=== PATIENT | male | born 1940 | race Caucasian/White ===

== ENCOUNTER → 2017-10-14 13:25 | Outpatient (CLI) | payer MEDICARE, OTHER, SELFPAY ==
[2017-10-16 14:56] LABS: PSA Free % 19 % (calc) (> 25); PSA, Total 7.9 ng/mL (< 4.1)
== END ==
PROVIDERS: PCP Internal Medicine; Visit Provider Internal Medicine
DX: R97.20 Elevated prostate specific antigen [PSA] (principal)
CPT/HCPCS: 36415; 84153; 84154

== ENCOUNTER 2017-10-20 10:03 | Day surgery (SDC) | payer MEDICARE, OTHER, SELFPAY ==
--- NOTE | 2017-10-20 | PATH_ITS ---
[facility] Accession Number: [id number] . 01 Material submitted: . ASCENDING COLON POLYP . 02 Diagnosis: Ascending Colon Polyp: Sessile serrated adenoma. MRV/10/22/2017 . 02 Electronically signed: . Klaus Varghese MD, PhD, Pathologist NPI- [id number] . 01 Gross description: . ASCENDING COLON POLYP: Received in formalin are multiple fragment(s) of [place], soft tissue measuring 1.3 x 0.3 x 0.2 cm in aggregate submitted entirely in 1 cassette(s) /TRC /TRC . 02 Pathologist provided ICD-10: D12.2 . 02 CPT . 129392 Performed at: 01 [facility] [address] [id number] MD Bartolo Boyer MD Phone: [phone] Performed at: 02 [facility] [address] [place], [place] [id number] MD Isaac Shaw MD Phone: [phone]
[2017-10-20 10:30] VITALS: BP 132/83; PULSE 67; RESP 16; TEMP 36.4; O2SAT 100; BMI 26.2
[2017-10-20] MEDS: SODIUM CHLORIDE 0.9% 1,000 ML 200 ML IV (10:37)
--- NOTE | 2017-10-20 10:50 | PM.HP.1 ---
History of Present Illness Date Patient Seen: 10/20/17 Time Patient Seen: 10:50 Chief complaint: COLONSCOPY [id number] Narrative: The patient is a gentleman here for screening colonoscopy. His last exam was 10 years ago. He has seen no blood in has no family history of colon cancer. Patient History Surgical History History of hemorrhoidectomy (Inactive) Family & Social History Social History: household members spouse Non smoker Meds Home Medications Medication Instructions Recorded Confirmed Type No Known Home Medications 10/20/17 10/20/17 History Allergies Allergy/AdvReac Type Severity Reaction Status Date / Time From CLINDAMYCIN HCL Allergy Mild SEVERE Uncoded 10/20/17 10:38 REDNESS ON SKIN Review of Systems Review of Systems All systems reviewed & are unremarkable except as noted in HPI and below Exam Vital Signs (past 8 hours): Vital Signs - 8 hr 10/20/17 10:30 Temperature 97.5 F L Pulse Rate 67 Respiratory Rate 16 Blood Pressure 132/83 H Pulse Oximetry 100 Pulse Oximetry 100 Oxygen Delivery Method Room Air Narrative Exam Narrative: Operative no apparent distress. Lungs are clear no rales or rhonchi heart regular rate and rhythm no murmur gallop or heave lift or thrill abdomen is protuberant soft nontender without mass or obvious hernia. Patient is alert and oriented x3. Assessment & Plan Plan: Assessment/Plan Narrative: I have discussed the procedure and the rationale with the patient including risks of bleeding, perforation which would necessitate a major operation, failure to find remove all lesions and the potential to tattoo. They appeared to understand and wished to proceed.
--- NOTE | 2017-10-20 10:53 | P.HP_ITS ---
History of Present Illness Date Patient Seen: 10/20/17 Time Patient Seen: 10:50 Chief complaint: COLONSCOPY [id number] Narrative: The patient is a gentleman here for screening colonoscopy. His last exam was 10 years ago. He has seen no blood in has no family history of colon cancer. Patient History Surgical History History of hemorrhoidectomy (Inactive) Family & Social History Social History: household members spouse Non smoker Meds Home Medications Medication Instructions Recorded Confirmed Type No Known Home Medications 10/20/17 10/20/17 History Allergies Allergy/AdvReac Type Severity Reaction Status Date / Time From CLINDAMYCIN HCL Allergy Mild SEVERE Uncoded 10/20/17 10:38 REDNESS ON SKIN Review of Systems Review of Systems All systems reviewed & are unremarkable except as noted in HPI and below Exam Vital Signs (past 8 hours): Vital Signs - 8 hr 3 10/20/17 10:30 Temperature 97.5 F L Pulse Rate 67 Respiratory Rate 16 Blood Pressure 132/83 H Pulse Oximetry 100 Pulse Oximetry 100 Oxygen Delivery Method Room Air Narrative Exam Narrative: Operative no apparent distress. Lungs are clear no rales or rhonchi heart regular rate and rhythm no murmur gallop or heave lift or thrill abdomen is protuberant soft nontender without mass or obvious hernia. Patient is alert and oriented x3. Assessment & Plan Plan: Assessment/Plan Narrative: I have discussed the procedure and the rationale with the patient including risks of bleeding, perforation which would necessitate a major operation, failure to find remove all lesions and the potential to tattoo. They appeared to understand and wished to proceed.
--- NOTE | 2017-10-20 10:53 | PM.PREOP ---
Pre-operative Note Interval Note Pre-op Check: History & Physical exam performed today ASA Class (for procedural sedation): I
--- NOTE | 2017-10-20 11:01 | SUR.OPER ---
to endo from opd via cart respirations unlabored iv patent positioned per self for procedure
--- NOTE | 2017-10-20 11:32 | SUR.OPER ---
tolerated procedure well
[2017-10-20 11:34] VITALS: BP 99/66; PULSE 56; RESP 10; TEMP 36.1; O2SAT 95
[2017-10-20] MEDS: fentaNYL 250 MCG/5 ML INJ 100 MCG IV (11:36)
[2017-10-20] MEDS: MIDAZOLAM 5 MG/5 ML VIAL IV (11:36)
[2017-10-20 11:39] VITALS: BP 116/60; PULSE 66; RESP 14; O2SAT 96
--- NOTE | 2017-10-20 11:41 | PM.OP.ENDO ---
Operative Date/Time/Diagnoses - Date of procedure: 10/20/17 Time of procedure: 11:36 Pre-op diagnosis: Screening examination. Last exam 10 years ago. Post-op diagnosis: same (Ascending colon polyp. Sigmoid diverticulosis. Internal hemorrhoids.) Procedure & Clinicians Study performed: Colonoscopy with cold biopsy. Same procedure as scheduled: Yes Indications: Screening Surgeon: Royer Fabian Procedure Notes SCOAP/Timeout: Performed Procedure in detail: The patient was placed in the left lateral decubitus position and underwent IV sedation directed by the surgeon consisting of fentanyl and Versed. Digital exam was normal. His prostate is firm but small. The scope was inserted and advanced through the rectum into the sigmoid, descending, transverse, and ascending colon. I noted sigmoid diverticulosis. No other lesion was seen.. The cecum was reached identified by the ileocecal valve and the appendiceal opening. Retroflexed view in the cecum revealed a small polyp on the backside of a fold in the ascending colon. This was biopsied and removed. The ileocecal valve was[not] cannulated. The scope was gradually brought out. No other Polyps were found. The scope ultimately was retroflexed in the rectum. The appearance was significant for internal hemorrhoids without ulceration. There were moderate in size.. The scope was removed and the patient tolerated the procedure well Scope withdrawal time: 7.5 min excluding biopsy time Sedation minutes: 31 Findings: diverticulosis (Sigmoid), internal hemorrhoids and polyp (Ascending colon near cecum) Recommendations: Colonscopy in 5 years (If in good health) Plan for aftercare: Follow-up is needed Follow up: as needed Disposition: PACU
[2017-10-20 11:43] VITALS: BP 125/76; PULSE 62; RESP 11; TEMP 36.1; O2SAT 95
[2017-10-20 12:05] VITALS: BP 113/72; PULSE 56; RESP 16; TEMP 36.1; O2SAT 96
== END 2017-10-20 12:08 | disposition home or self-care (01) ==
PROVIDERS: Family Provider Internal Medicine; PCP Internal Medicine; Visit Provider Specialist
PROC: 0DJD8ZZ Inspection of Lower Intestinal Tract, Via Natural or Artificial Opening Endoscopic (ICD-10-PCS; CPT 45378; principal; 2017-10-20 10:45)
DX: Z12.11 Encounter for screening for malignant neoplasm of colon (principal); D12.2 Benign neoplasm of ascending colon; K57.30 Diverticulosis of large intestine without perforation or abscess without bleeding; K64.8 Other hemorrhoids
CPT/HCPCS: 45380; 88305; 99152; 99153; J2250; J3010

== ENCOUNTER → 2018-10-30 08:06 | Outpatient (CLI) | payer MEDICARE, OTHER, SELFPAY ==
[2018-10-30 09:19] LABS: BUN Creatinine Ratio 22.2 (6-22); Blood Urea Nitrogen 20 mg/dL (9-20); Calcium 9.3 mg/dL (8.4-10.2); Carbon Dioxide 28 mmol/L (22-32); Chloride 103 mmol/L (98-107); Cholesterol 191 mg/dL (140-199); Estimated Glomerular Filt Rate > 60.0 mL/min (>60); Glucose 105 mg/dL (80-110); HDL Cholesterol 68 mg/dL (40-60); HEMOLYSIS < 15 (0-50); LDL Cholesterol Calculated 110 mg/dL (<100); Potassium 4.3 mmol/L (3.4-5.1); Sodium 137 mmol/L (137-145); Triglycerides 63 mg/dL (35-150)
[2018-10-30 09:48] LABS: Prostate Specific Antigen 5.83 ng/mL (0.10-4.00)
== END ==
PROVIDERS: Family Provider Internal Medicine; PCP Internal Medicine; Visit Provider Urology
DX: R97.20 Elevated prostate specific antigen [PSA] (principal); Z13.1 Encounter for screening for diabetes mellitus; Z13.6 Encounter for screening for cardiovascular disorders
CPT/HCPCS: 36415; 80048; 80061; 84153

== ENCOUNTER 2019-02-12 11:08 | Emergency (ER) | payer MEDICARE, OTHER, SELFPAY ==
[2019-02-12 11:13] VITALS: BP 134/75; PULSE 70; RESP 14; TEMP 36.7; O2SAT 98
--- NOTE | 2019-02-12 11:19 | DI.RAD.S_ITS ---
PROCEDURE: XR SHOULDER RT MIN 2V INDICATIONS: pain x 10 days after using heavy equipment. TECHNIQUE: 3 views of the shoulder were acquired. COMPARISON: [facility], , SHOULDER MINIMUM 2 VIEW LEFT, 09/26/2010, 9:42. FINDINGS: Bones: No fractures or dislocations. There is mild acromioclavicular joint degeneration. There is slight lateral downsloping of the acromion. No suspicious bony lesions. Visualized ribs appear intact. Soft tissues: No suspicious soft tissue calcifications. IMPRESSION: 1. No acute bony abnormality. 2. Slight lateral downsloping of the acromion may be associated with rotator cuff tearing. Dictated by: Bartolo Xavier M.D. on 02/12/2019 at 10:44 Approved by: Bartolo Xavire M.D. on 02/12/2019 at 10:45
--- NOTE | 2019-02-12 11:54 | DI.RAD.S_ITS ---
PROCEDURE: XR CHEST 2V INDICATIONS: chest tightness TECHNIQUE: 2 views of the chest were acquired. COMPARISON: None. FINDINGS: Surgical changes and devices: None. Lungs and pleura: Lungs are clear. No pleural effusions or pneumothorax. Mediastinum: Mediastinal contours are normal. Heart size is normal. Bones and chest wall: No suspicious bony abnormalities. Soft tissues appear unremarkable. IMPRESSION: 1. No acute cardiopulmonary disease. Dictated by: Bartolo Xavier M.D. on 02/12/2019 at 11:26 Approved by: Bartolo Xavier M.D. on 02/12/2019 at 11:27
[2019-02-12] MEDS: MAG HYDROX/ALUMINUM/SIMETH SUS 20 ML, LIDOCAINE VISCOUS 2% 15 ML PO (12:03)
--- NOTE | 2019-02-12 12:07 | ED_ITS ---
HPI - Abdominal Pain <ASHOK Archer - Last Filed: 02/12/19 23:29> General Chief Complaint: Abdominal Pain Stated Complaint: R shoulder pain 10 days swollowing issues yesturda Time Seen by Provider: 02/12/19 11:21 Source: patient Mode of arrival: Ambulatory Limitations: no limitations History of Present Illness HPI narrative: This is a 79-year-old gentleman, nonsmoker, who presents to ED with 2 chief complaints. He reports right shoulder pain for last 2 weeks after he used concrete saw to cut concrete which was heavy and powerful. Since then he has been having right deltoid discomfort which worsens with motion such as internal rotation, abduction, adduction, pronation/supination, lifting even a small objects. Patient denies decreased sensation or weakness to affected arm. Patient had played golf ball twice after this injury which increased pain. Patient right-hand dominant. Patient also reports mid chest tightness and discomfort in his throat worse yesterday which has been improved a bit today. He also has increasing and burping but without foul taste in his mouth. Patient reports drinking hot coffee worsen this burning sensation and he had taken 2 tabs of times felt this helped with his symptoms. Patient denies short of breath, dizziness, feeling sweaty, or nausea or vomiting. Related Data Home Medications Medication Instructions Recorded Confirmed niacinamide 500 mg PO BID 02/12/19 02/12/19 Allergies Allergy/AdvReac Type Severity Reaction Status Date / Time clindamycin Allergy Intermediate Hives Verified 02/12/19 11:17 Review of Systems <ASHOK rAcher - Last Filed: 02/12/19 23:29> Review of Systems Narrative: General: Denies fever, chills, fatigue, malaise, sweats. HEENT: Denies sinus pain, ear pain, sore throat, difficulty swallowing, dizziness. Respiratory: Denies dyspnea, cough, wheezing, hemoptysis, sputum. Cardiovascular: Mid chest tightness and burning sensation since yesterday. Denies chest pain, palpitations, orthopnea, edema. Gastrointestinal: Denies nausea, vomiting, abdominal pain, diarrhea, constipation, melena. : Denies dysuria, frequency, incontinence, hematuria, urinary retention. Musculoskeletal: See HPI Skin: Denies rash, skin lesions, or other. Neurologic: Denies weakness, headache, numbness, change in speech, confusion, seizures, incoordination. Psychiatric: No concerning psychosocial issues. 12-point review of systems is negative except for those stated above. 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: other leisure activities: sports, exercise, fishing and other Smoking Status: Never smoker Tobacco: How many years used: 0 quit status: quit date established second hand exposure: No (Some.) alcohol intake: current substance use type: does not use Social History marital status: number of children: 4 household members: spouse lives independently: Yes caregiver/support person: No housing: house pets and animals: No education level: master's degree occupational status: other 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 Head: Normal cephalic, atraumatic. No scalp or temporal tenderness, palpable mass or rash. EYES: Pupils are equal, round, and reactive to light and accommodation. Ext raocular muscles are intact bilaterally. There is no subconjunctival hemorrhage, exudate and sclera non-icteric. ENT: Bilateral auditory canals and tympanic membranes clear. Hearing grossly intact. Nose without bleeding, purulent discharge or deviation. Facial sinuses nontender to palpate. Mucous membrane moist, no mucosal lesion. Throat without erythema, tonsillar hypertrophy or exudate. Uvula in midline, airway patent. Neck: Trachea in midline. No JVD, non-tender without lymphadenopathy. No masses or thyroid megaly. Supple, non-tender and no meningeal signs. CARDIAC: Normal regular rate and rhythm without murmurs, gallops, or rubs. No chest wall tenderness. No peripheral edema, cyanosis or pallor. Capillary refill is less than 2 seconds. RESPIRATORY: Lungs are cleat to auscultate bilaterally. No cough, wheezes, rales, or rhonchi. No stridor, respiratory distress, increase work of breathing, or accessary muscle used. ABD: Abdomen soft, nontender and non-distended. No guarding or rebound tenderness to palpate. Bowel sounds are normal in all 4 quadrants. There is no palpable masses or organomegaly. SKIN: Warm, dry, normal color for patient. No erythema, lesions or rash over visible areas. BACK: Nontender without deformity or crepitance. No flank tenderness. NEUROLOGICAL: Alert and oriented to place, time and person. Sensation and motor function intact bilaterally. No facial droops, dysphasia. PSYCHIATRIC: Good judgement and reason, without hallucinations, abnormal affect or abnormal behaviors during the examination. Initial Vital Signs Initial Vital Signs: Vital Signs Temperature 98.1 F 02/12/19 11:13 Pulse Rate 70 02/12/19 11:13 Respiratory Rate 14 02/12/19 11:13 Blood Pressure 134/75 02/12/19 11:13 Pulse Oximetry 98 02/12/19 11:13 Extrem Right upper extremity: normal to inspection, shoulder/upper arm Details: normal to inspection, tenderness and abnormal ROM Details: pain with active ROM, pain with passive ROM and with range as follows (Decreased range of motion due to pain with abduction, adduction, internal rotation, forward flexion); no swelling and hand Details: normal capillary refill, neuromotor exam normal (In hand and fingers), neurosensory exam normal (In hand and fingers) and normal ROM of fingers; no unusual warmth and no swelling <Floresita Lea, DO - Last Filed: 02/13/19 08:39> Initial Vital Signs Initial Vital Signs: Vital Signs Temperature 98.1 F 02/12/19 11:13 Pulse Rate 70 02/12/19 11:13 Respiratory Rate 14 02/12/19 11:13 Blood Pressure 134/75 02/12/19 11:13 Pulse Oximetry 98 02/12/19 11:13 Scores <Josr SenthilJOSÉ LUIS juanP - Last Filed: 02/12/19 23:29> GCS Kaitlynn coma scale eye opening: Spontaneous Kaitlynn coma scale verbal response: Orientated Kaitlynn coma scale motor response: Obey commands Kaitlynn coma scale total score: 15 Course <Josr Ac-GigiJOSÉ LUIS juanP - Last Filed: 02/12/19 23:29> Orders Ordered: Discontinued Medications Al Hydrox/Mg Hydrox/Simethicone 20 ml/ Lidocaine HCl 15 ml 0 ml PO NOW ONE Stop: 02/12/19 11:54 Last Admin: 02/12/19 12:03 Dose: 35 ml Documented by: ROSALINA Vital Signs Vital signs: Vital Signs - 8 hr 02/12/19 11:13 02/12/19 12:24 Temperature 98.1 F Pulse Rate 70 58 L Respiratory Rate 14 16 Blood Pressure 134/75 Blood Pressure [Right Arm] 138/80 Pulse Oximetry 98 98 <Floresita Lea DO - Last Filed: 02/13/19 08:39> Orders Ordered: Discontinued Medications Al Hydrox/Mg Hydrox/Simethicone 20 ml/ Lidocaine HCl 15 ml 0 ml PO NOW ONE Stop: 02/12/19 11:54 Last Admin: 02/12/19 12:03 Dose: 35 ml Documented by: ROSALINA Vital Signs Vital signs: Vital Signs - 8 hr 02/12/19 11:13 02/12/19 12:24 Temperature 98.1 F Pulse Rate 70 58 L Respiratory Rate 14 16 Blood Pressure 134/75 Blood Pressure [Right Arm] 138/80 Pulse Oximetry 98 98 MDM - Abdominal Pain <Josr AcJOSÉ LUIS CoughlinP - Last Filed: 02/12/19 23:29> Differential Diagnosis Differential diagnosis: Likely other (Right shoulder rotator cuff injury, tendinitis, GERD, atypical chest pain, indigestion) Medical Records Attestation: I reviewed the patient's medical records. Lab Data Attestation: I reviewed the patient's lab results. Result diagrams: 02/12/19 12:08 02/12/19 12:08 Labs: Lab Results 02/12/19 02/12/19 Range/Units 12:08 12:08 WBC 12.1 H (4.5-11.0) X10^3/uL RBC 5.00 (4.5-5.9) X10^6/uL Hgb 14.5 (13.5-17.5) g/dL Hct 43.5 (41-53) % MCV 87.0 (80-100) fL MCH 29.1 (26-34) PG MCHC 33.4 (30-36) % RDW 14.4 (11.6-14.8) % Plt Count 231 (150-400) X10^3/uL Neut % (Auto) 78.1 H (50-75) % Lymph % (Auto) 10.7 L (25-40) % [place] % (Auto) 9.4 (3-14) % Eos % (Auto) 1.4 L (2-4) % Baso % (Auto) 0.4 (0-2) % Neut # (Auto) 9500 H (6835-4179) /uL Lymph # (Auto) 1300 (3964-2360) /uL [place] # (Auto) 1100 H (0-900) /uL Eos # (Auto) 200 (0-450) /uL Baso # (Auto) 0 (0-100) /uL Sodium 138 (137-145) mmol/L Potassium 4.2 (3.4-5.1) mmol/L Chloride 103 (98-107) mmol/L Carbon Dioxide 27 (22-32) mmol/L BUN 24 H (9-20) mg/dL Creatinine 0.90 (0.66-1.25) mg/dL Estimated GFR > 60.0 (>60) mL/min BUN/Creatinine Ratio 26.7 H (6-22) Glucose 94 (80-110) mg/dL Calcium 9.7 (8.4-10.2) mg/dL Total Bilirubin 0.7 (0.2-1.3) mg/dL AST 26 (17-59) IU/L ALT 34 (21-72) IU/L Alkaline Phosphatase 55 (38-126) U/L Total Creatine Kinase 92 (55-170) U/L CK-MB (CK-2) TNP CK-MB (CK-2) Rel Index TNP Troponin I < 0.012 (0.01-0.034) ng/mL Total Protein 7.0 (6.3-8.2) g/dL Albumin 4.4 (3.5-5.0) g/dL Globulin 2.6 (1.7-4.1) g/dL Albumin/Globulin Ratio 1.7 (1.0-2.8) Lipase 117 (23-300) U/L Imaging Data XR-Shoulder R: Radiologist's impression: [address] [address] XRay Report Signed Patient: Julius Fernando RMR#: [id number] : 1Acct:[id number] Age/Sex: 79 / MDate of Service: 02/12/19 Loc: ED Accession Number: [id number] Procedure: XR shoulder RT min 2V Ordering Provider: Floresita Lea D.O. PROCEDURE: XR SHOULDER RT MIN 2V INDICATIONS: pain x 10 days after using heavy equipment. TECHNIQUE: 3 views of the shoulder were acquired. COMPARISON: [facility], , SHOULDER MINIMUM 2 VIEW LEFT, 09/26/2010, 9:42. FINDINGS: Bones: No fractures or dislocations. There is mild acromioclavicular joint degeneration. There is slight lateral downsloping of the acromion. No suspicious bony lesions. Visualized ribs appear intact. Soft tissues: No suspicious soft tissue calcifications. IMPRESSION: 1. No acute bony abnormality. 2. Slight lateral downsloping of the acromion may be associated with rotator cuff tearing. Dictated by: Bartolo Xavier M.D. on 02/12/2019 at 10:44 Approved by: Bartolo Xavier M.D. on 02/12/2019 at 10:45 Chest x-ray: Radiologist's impression: [address] [address] XRay Report Signed Patient: Julius Fernando RMR#: [id number] : 1Acct:[id number] Age/Sex: 79 / MDate of Service: 02/12/19 Loc: ED Accession Number: [id number] Procedure: XR chest 2V Ordering Provider: Ac-Oras,Josr DREDGE PIPE OPERATOR PROCEDURE: XR CHEST 2V INDICATIONS: chest tightness TECHNIQUE: 2 views of the chest were acquired. COMPARISON: None. FINDINGS: Surgical changes and devices: None. Lungs and pleura: Lungs are clear. No pleural effusions or pneumothorax. Mediastinum: Mediastinal contours are normal. Heart size is normal. Bones and chest wall: No suspicious bony abnormalities. Soft tissues appear unremarkable. IMPRESSION: 1. No acute cardiopulmonary disease. Dictated by: Bartolo Xavier M.D. on 02/12/2019 at 11:26 Approved by: Bartolo Xavier M.D. on 02/12/2019 at 11:27 ECG Data Attestation: I personally reviewed and interpreted this ECG as follows: Prior ECG tracings: not available for review Interpretation: Sinus rhythm rate at 65. Borderline left Robinson. Non specific T wave abnormality in V2 According to patient, he is known to have nonspecific T wave abnormality in the past since he was in the MDM Narrative Medical decision making narrative: This is a pleasant 79-year-old gentleman who presents to ED with right shoulder/deltoid discomfort after he overused affected extremity by working with concrete saw which was heavy and powerful. Patient had intact neurovascular exam. Patient exhibited increasing pain with active ROM such as internal/external rotation, forward flexion, abduction/adduction, pronation/supination motion. There was no weakness to right hand grasp. X-ray of right shoulder was obtained and 8 indicated possible rotator cough tearing which is consistent with slight lateral downsloping of the acromion. He also stated has been having increasing burping, hiccups and chest tightness for 2 days which was worse yesterday. After patient had taken and the acid the symptoms mildly improved and worsened with drinking hot coffee. Patient had cardiac workup done. EKG showed normal sinus rhythm rate at 65 with nonspecific T-wave abnormality in the to which patient has known to have this. Cardiac enzymes were negative. Other blood tests were unremarkable. Chest x-ray showed no acute findings. Patient was medicated with GI cocktail and reports symptoms markedly improved at this time. The findings were shared with the patient. Patient was advised to take [id number] Tylenol and/or Motrin as needed for discomfort but Motrin may cause irritation in his stomach and to take it with food. Patient advised to follow up with his primary care physician for re- evaluation and possible a referral to physical therapy as a conservative therapy for his shoulder pain and possible further imaging test if needs to be. Patient advised to take [id number] anti acid or omeprazole as needed for the burning and chest tightness sensation. Return precautions were discussed with the patient and verbalized understanding and agrees with treatment plan. <Floresita Leonora, DO - Last Filed: 02/13/19 08:39> Lab Data Labs: Lab Results 02/12/19 02/12/19 Range/Units 12:08 12:08 WBC 12.1 H (4.5-11.0) X10^3/uL RBC 5.00 (4.5-5.9) X10^6/uL Hgb 14.5 (13.5-17.5) g/dL Hct 43.5 (41-53) % MCV 87.0 (80-100) fL MCH 29.1 (26-34) PG MCHC 33.4 (30-36) % RDW 14.4 (11.6-14.8) % Plt Count 231 (150-400) X10^3/uL Neut % (Auto) 78.1 H (50-75) % Lymph % (Auto) 10.7 L (25-40) % [place] % (Auto) 9.4 (3-14) % Eos % (Auto) 1.4 L (2-4) % Baso % (Auto) 0.4 (0-2) % Neut # (Auto) 9500 H (9336-2391) /uL Lymph # (Auto) 1300 (3718-2914) /uL [place] # (Auto) 1100 H (0-900) /uL Eos # (Auto) 200 (0-450) /uL Baso # (Auto) 0 (0-100) /uL Sodium 138 (137-145) mmol/L Potassium 4.2 (3.4-5.1) mmol/L Chloride 103 (98-107) mmol/L Carbon Dioxide 27 (22-32) mmol/L BUN 24 H (9-20) mg/dL Creatinine 0.90 (0.66-1.25) mg/dL Estimated GFR > 60.0 (>60) mL/min BUN/Creatinine Ratio 26.7 H (6-22) Glucose 94 (80-110) mg/dL Calcium 9.7 (8.4-10.2) mg/dL Total Bilirubin 0.7 (0.2-1.3) mg/dL AST 26 (17-59) IU/L ALT 34 (21-72) IU/L Alkaline Phosphatase 55 (38-126) U/L Total Creatine Kinase 92 (55-170) U/L CK-MB (CK-2) TNP CK-MB (CK-2) Rel Index TNP Troponin I < 0.012 (0.01-0.034) ng/mL Total Protein 7.0 (6.3-8.2) g/dL Albumin 4.4 (3.5-5.0) g/dL Globulin 2.6 (1.7-4.1) g/dL Albumin/Globulin Ratio 1.7 (1.0-2.8) Lipase 117 (23-300) U/L Discharge Plan Departure Patient Disposition: Home Clinical Impression: Atypical chest pain Rotator cuff injury Qualifiers: Encounter type: initial encounter Laterality: right Qualified Code(s): S46.001A - Unspecified injury of muscle(s) and tendon(s) of the rotator cuff of right shoulder, initial encounter Discharge Date/Time: 02/12/19 13:50 Instructions: DI for Rotator Cuff Injury, DI for Atypical Chest Pain Activity Restrictions/Additional Instructions: You have been diagnosed with [possible rotator cough injury and atypical chest pain. EKG and cardiac enzymes were unremarkable. Chest x-ray was without acute findings. Right shoulder x-ray shows slight lateral downsloping of the acromion this may be associated with rotator cough tearing]. What to do: *Take your medications as directed. Please take [id number] Tylenol and or Motrin as needed for discomfort and inflammation. Please injured to take Motrin with food. You can take 400-600 mg TID as needed for Motrin. You can also continue to take Tums as needed or [id number] Zantac, Pepcid, omeprazole for burning sensation and discomfort in her chest. Please avoid fatty, acidic, or any triggering foods. *Follow up with your primary care provider in 2-3 days, call for an appointment. Let them know you were seen in the ED and that we asked you to be seen in follow up. You may need a referral to physical therapy is to rehabilitate for your right shoulder injury. *Return to ED if you have any new, worsening, or concerning symptoms, such as increasing or different type of chest pain, breathing difficulty, dizziness, nausea or vomiting, weakness/tingling to right arm, or any acute concerns]. Prescriptions: No Action niacinamide 500 mg Tablet 500 mg PO BID RF: 0 Referrals: Kavin Meza MD [Primary Care Provider] -
[2019-02-12 12:19] LABS: Add Manual Diff / Slide Review NO; Basophils Absolute Auto 0 /uL (0-100); Basophils Percent Auto 0.4 % (0-2); Eosinophils Absolute Auto 200 /uL (0-450); Eosinophils Percent Auto 1.4 % (2-4); Hematocrit 43.5 % (41-53); Hemoglobin 14.5 g/dL (13.5-17.5); Lymphocytes Absolute Auto 1300 /uL (1100-4500); Lymphocytes Percent Auto 10.7 % (25-40); Mean Corpuscular HGB Conc 33.4 % (30-36); Mean Corpuscular Hemoglobin 29.1 PG (26-34); Monocytes Absolute Auto 1100 /uL (0-900); Monocytes Percent Auto 9.4 % (3-14); Neutrophils Absolute Auto 9500 /uL (1500-7000); Neutrophils Percent Auto 78.1 % (50-75); Platelet Count 231 X10^3/uL (150-400); Red Cell Distribution Width 14.4 % (11.6-14.8); White Blood Cell Count 12.1 X10^3/uL (4.5-11.0)
[2019-02-12 12:24] VITALS: BP 138/80; PULSE 58; RESP 16; O2SAT 98
[2019-02-12 12:46] LABS: Alanine Aminotransferase 34 IU/L (21-72); Albumin 4.4 g/dL (3.5-5.0); Albumin Globulin Ratio 1.7 (1.0-2.8); Alkaline Phosphatase 55 U/L (38-126); Aspartate Aminotransferase 26 IU/L (17-59); BUN Creatinine Ratio 26.7 (6-22); Bilirubin Total 0.7 mg/dL (0.2-1.3); Blood Urea Nitrogen 24 mg/dL (9-20); Calcium 9.7 mg/dL (8.4-10.2); Carbon Dioxide 27 mmol/L (22-32); Chloride 103 mmol/L (98-107); Creatine Kinase 92 U/L (55-170); Estimated Glomerular Filt Rate > 60.0 mL/min (>60); Globulin 2.6 g/dL (1.7-4.1); Glucose 94 mg/dL (80-110); HEMOLYSIS < 15 (0-50); Lipase 117 U/L (23-300); Potassium 4.2 mmol/L (3.4-5.1); Sodium 138 mmol/L (137-145)
[2019-02-12 12:58] LABS: Troponin I < 0.012 ng/mL (0.01-0.034)
== END 2019-02-12 13:50 | disposition home or self-care (01) ==
PROVIDERS: Emergency Provider Nurse Practitioner Family; PCP Internal Medicine
DX: R07.89 Other chest pain (principal); S46.001A Unspecified injury of muscle(s) and tendon(s) of the rotator cuff of right shoulder, initial encounter
CPT/HCPCS: 36415; 71046; 73030; 80053; 82550; 83690; 84484; 85025; 93005; 93010; 99282; 99285

== ENCOUNTER → 2019-02-23 15:43 | Outpatient (CLI) | payer MEDICARE, OTHER, SELFPAY ==
[2019-02-23 18:36] LABS: Bacteria Urine None Seen
[2019-02-23 18:40] LABS: Appearance Urine UA CLEAR; Bilirubin Urine UA NEGATIVE (NEGATIVE); Color Urine UA YELLOW; Glucose Urine UA NEGATIVE (Negative); Ketones Urine UA NEGATIVE (NEGATIVE); Leukocyte Esterase Urine UA NEGATIVE (NEGATIVE); Nitrite Urine UA NEGATIVE (Negative); Occult Blood Urine UA NEGATIVE (Negative); Protein Urine UA NEGATIVE (Negative); Specific Gravity Urine UA 1.015 (1.000-1.035); Urobilinogen Urine UA 0.2 E.U./dL (0.2)
[2019-02-23 18:51] LABS: Culture Indicated Urine Cult Not Indicated; RBC Urine 0-1/HPF (0-5/HPF); Squamous Epithelial Cell Urine 0-1 /HPF (0-5/HPF); WBC Urine 0-1/HPF (0-5/HPF)
== END ==
PROVIDERS: PCP Internal Medicine; Visit Provider Nurse Practitioner Family
DX: R30.0 Dysuria (principal)
CPT/HCPCS: 81001; 87086

== ENCOUNTER → 2020-12-11 09:43 | Outpatient (CLI) | payer MEDICARE, OTHER, SELFPAY ==
[2020-12-11 10:58] LABS: Alanine Aminotransferase 27 IU/L (<50); Albumin Globulin Ratio 1.3 (1.0-2.8); Alkaline Phosphatase 62 U/L (38-126); Aspartate Aminotransferase 28 IU/L (17-59); BUN Creatinine Ratio 26.9 (6-22); Bilirubin Total 0.5 mg/dL (0.2-1.3); Blood Urea Nitrogen 21 mg/dL (9-20); Calcium 9.4 mg/dL (8.4-10.2); Carbon Dioxide 26 mmol/L (22-32); Chloride 106 mmol/L (98-107); Cholesterol 196 mg/dL (140-199); Estimated Glomerular Filt Rate > 60.0 mL/min (>60); Globulin 3.1 g/dL (1.7-4.1); Glucose 103 mg/dL (80-110); HDL Cholesterol 51 mg/dL (40-60); HEMOLYSIS < 15 (0-50); LDL Cholesterol Calculated 129 mg/dL (<100); Potassium 4.2 mmol/L (3.4-5.1); Sodium 138 mmol/L (137-145); Total Protein 7.1 g/dL (6.3-8.2); Triglycerides 82 mg/dL (35-150)
[2020-12-11 11:26] LABS: Prostate Specific Antigen 6.89 ng/mL (0.10-4.00)
== END ==
PROVIDERS: PCP Internal Medicine; Referring Provider Internal Medicine; Visit Provider Internal Medicine
DX: R97.20 Elevated prostate specific antigen [PSA] (principal); I10 Essential (primary) hypertension; Z13.220 Encounter for screening for lipoid disorders; Z13.6 Encounter for screening for cardiovascular disorders
CPT/HCPCS: 36415; 80053; 80061; 84153

== ENCOUNTER → 2022-03-12 15:59 | Outpatient (CLI) | payer MEDICARE, OTHER, SELFPAY ==
[2022-03-12 17:05] LABS: Alanine Aminotransferase 33 IU/L (<50); Albumin 4.2 g/dL (3.5-5.0); Albumin Globulin Ratio 1.5 (1.0-2.8); Alkaline Phosphatase 51 U/L (38-126); Aspartate Aminotransferase 28 IU/L (17-59); BUN Creatinine Ratio 22.6 (6-22); Bilirubin Total 0.4 mg/dL (0.2-1.3); Blood Urea Nitrogen 21 mg/dL (9-20); Calcium 8.9 mg/dL (8.4-10.2); Carbon Dioxide 29 mmol/L (22-32); Chloride 103 mmol/L (98-107); Estimated Glomerular Filt Rate > 60 mL/min (>60); Globulin 2.8 g/dL (1.7-4.1); Glucose 96 mg/dL (80-110); HEMOLYSIS < 15 (0-50); Potassium 3.8 mmol/L (3.4-5.1); Sodium 141 mmol/L (137-145)
[2022-03-12 17:32] LABS: Prostate Specific Antigen 8.39 ng/mL (0.10-4.00); TSH w/ Reflex to FT4 0.69 uIU/mL (0.47-4.68)
== END ==
PROVIDERS: PCP Internal Medicine; Referring Provider Internal Medicine; Visit Provider Internal Medicine
DX: M62.838 Other muscle spasm (principal); R97.20 Elevated prostate specific antigen [PSA]; M79.10 Myalgia, unspecified site
CPT/HCPCS: 36415; 80053; 84153; 84443

== ENCOUNTER → 2022-09-19 16:36 | Outpatient (CLI) | payer MEDICARE, OTHER, SELFPAY ==
[2022-09-19 18:55] LABS: Add Manual Diff / Slide Review NO; Basophils Absolute Auto 0 /uL (0-100); Basophils Percent Auto 0.7 % (0-2); Eosinophils Absolute Auto 200 /uL (0-450); Eosinophils Percent Auto 3.8 % (2-4); Hematocrit 41.9 % (41-53); Hemoglobin 14.2 g/dL (13.5-17.5); Lymphocytes Absolute Auto 1400 /uL (1100-4500); Lymphocytes Percent Auto 23.2 % (25-40); Mean Corpuscular Hemoglobin 29.6 PG (26-34); Monocytes Absolute Auto 700 /uL (0-900); Monocytes Percent Auto 11.7 % (3-14); Neutrophils Absolute Auto 3700 /uL (1500-7000); Neutrophils Percent Auto 60.6 % (50-75); Platelet Count 249 X10^3/uL (150-400); Red Blood Cell Count 4.82 X10^6/uL (4.5-5.9); White Blood Cell Count 6.2 X10^3/uL (4.5-11.0)
[2022-09-19 19:21] LABS: Alanine Aminotransferase 31 IU/L (<50); Albumin 4.1 g/dL (3.5-5.0); Albumin Globulin Ratio 1.4 (1.0-2.8); Alkaline Phosphatase 55 U/L (38-126); Aspartate Aminotransferase 30 IU/L (17-59); BUN Creatinine Ratio 28.3 (6-22); Bilirubin Total 0.3 mg/dL (0.2-1.3); Blood Urea Nitrogen 26 mg/dL (9-20); Calcium 8.8 mg/dL (8.4-10.2); Carbon Dioxide 26 mmol/L (22-32); Chloride 104 mmol/L (98-107); Estimated Glomerular Filt Rate > 60 mL/min (>60); Glucose 88 mg/dL (80-110); HEMOLYSIS < 15 (0-50); Potassium 4.2 mmol/L (3.4-5.1); Sodium 138 mmol/L (137-145); Total Protein 7.1 g/dL (6.3-8.2); Uric Acid 5.8 mg/dL (3.5-8.5)
[2022-09-19 19:26] LABS: High Sensitivity CRP - Cardiac 3.2 mg/L (1.0-3.0)
[2022-09-19 19:31] LABS: Erythrocyte Sedimentation Rate 6 MM/HR (0-15)
[2022-09-19 19:38] LABS: Rheumatoid Factor < 8.6 IU/mL (<12.0)
[2022-09-19 19:52] LABS: Prostate Specific Antigen 8.57 ng/mL (0.10-4.00)
[2022-09-23 04:38] LABS: Angiotensin Converting Enzyme 42 U/L (14-82)
[2022-09-23 07:08] LABS: RPR Screen Non Reactive (Non Reactive)
[2022-09-23 14:16] LABS: QuantiFERON Mitogen Value >10.00 IU/mL (.); QuantiFERON TB Gold Plus Negative (Negative); QuantiFERON TB1 Ag Value 0.02 IU/mL (.); QuantiFERON TB2 Ag Value 0.01 IU/mL (.)
[2022-09-23 19:14] LABS: SS A Ro Sjogrens Antibody < 0.2 AI (0.0-0.9); SS B La Sjogrens Antibody < 0.2 AI (0.0-0.9)
[2022-09-24 09:36] LABS: Lysozyme (Muramidase) 7.1 ug/mL (4.2-9.5)
[2022-09-24 16:35] LABS: ANA Screen, IFA Positive (.)
[2022-09-29 14:54] LABS: HLA B27 Negative (.)
== END ==
PROVIDERS: PCP Internal Medicine; Referring Provider Ophthalmology; Visit Provider Ophthalmology
DX: R97.20 Elevated prostate specific antigen [PSA] (principal); H44.113 Panuveitis, bilateral
CPT/HCPCS: 36415; 80053; 81374; 82164; 84153; 84443; 84550; 85025; 85549; 85651; 86038; 86140; 86235; 86430; 86480; 86592

== ENCOUNTER → 2023-02-02 13:23 | Outpatient (CLI) | payer MEDICARE, OTHER, SELFPAY ==
[2023-02-02 14:57] LABS: Prostate Specific Antigen 9.32 ng/mL (0.10-4.00)
== END ==
PROVIDERS: PCP Internal Medicine; Referring Provider Specialist; Visit Provider Specialist
DX: N40.1 Benign prostatic hyperplasia with lower urinary tract symptoms (principal); N13.8 Other obstructive and reflux uropathy; R97.20 Elevated prostate specific antigen [PSA]
CPT/HCPCS: 36415; 84153

== ENCOUNTER → 2023-02-25 16:44 | Outpatient (CLI) | payer MEDICARE, OTHER, SELFPAY ==
--- NOTE | 2023-02-25 16:48 | DI.MRI.S_ITS ---
PROCEDURE: MR PELIS WO/W CON INDICATIONS: elevating rising PSA TECHNIQUE: Coronal HASTE, axial T1 FSE with fat saturation, 3-plane nonbreath-hold T2 FSE. After the administration of contrast, dynamic axial, delayed axial and coronal VIBE or 2-D FLASH with fat saturation through the pelvis. Optional diffusion weighted imaging and ADC may be performed. COMPARISON: None. FINDINGS: Image quality: Diffusion weighted and dynamic contrast enhanced images are diagnostic. Prostate: Gland size is 5.5 x 4.8 x 5.3 cm; ellipsoid gland volume is 73 mL. Lesion 1: Location: Anterior, midline transition zone of the base gland (series 4, image 9 and series 6, image 14) Size: 1.9 x 1.0 T2 signal: Moderately hypointense, ill-defined DWI: Markedly hyperintense ADC: Moderately hypointense Enhancement: Positive Extracapsular extension: Broad-based capsular contact. PI-RADS score: 5 Genitourinary system: Trabeculated bladder wall. Bowel and peritoneum: No pathologic free pelvic fluid. Inferior colon and small bowel loops are normal in caliber. Colonic diverticulosis without evidence of diverticulitis. Nodes and vessels: No pelvic or inguinal adenopathy by size criteria. Iliac vessels are normal in caliber. Soft tissues: Large left inguinal hernia containing fat. Bones: Marrow demonstrates normal overall signal, without lesions to suggest metastases. IMPRESSION: PI-RADS 5 lesion in the anterior transition zone of the prostate base. No suspicious lymph nodes. No aggressive osseous abnormality. Large left inguinal hernia containing fat. Dictated by: Blake Watkins M.D. on 02/26/2023 at 9:23 Approved by: Blake Watkins M.D. on 02/26/2023 at 9:57
[2023-02-27 14:01] LABS: PSA, Total 9.6 ng/mL (0.0-4.0)
== END ==
PROVIDERS: PCP Internal Medicine; Referring Provider Specialist; Visit Provider Specialist
DX: R97.20 Elevated prostate specific antigen [PSA] (principal); N40.1 Benign prostatic hyperplasia with lower urinary tract symptoms; N13.8 Other obstructive and reflux uropathy; K40.90 Unilateral inguinal hernia, without obstruction or gangrene, not specified as recurrent
CPT/HCPCS: 36415; 72197; 84153; 84154

== ENCOUNTER → 2023-11-12 15:27 | Outpatient (CLI) | payer MEDICARE, OTHER, SELFPAY | PROVIDERS: PCP Internal Medicine; Referring Provider Specialist; Visit Provider Specialist | DX: C61 Malignant neoplasm of prostate (principal); N40.1 Benign prostatic hyperplasia with lower urinary tract symptoms; N13.8 Other obstructive and reflux uropathy; R97.20 Elevated prostate specific antigen [PSA] | CPT/HCPCS: 36415; 84153 ==

== ENCOUNTER → 2024-02-03 12:12 | Outpatient (CLI) | payer MEDICARE, OTHER, SELFPAY ==
[2024-02-03 13:00] LABS: Influenza A - CEPHEID Flu A NEGATIVE (NEGATIVE); Influenza B - CEPHEID Flu B NEGATIVE (NEGATIVE); Respiratory Syncytial Virus Negative (Negative)
[2024-02-03 14:20] LABS: COVID-19 CEPHEID 4-PLEX PCR POSITIVE (Negative)
== END ==
PROVIDERS: PCP Internal Medicine; Referring Provider Nurse Practitioner Family; Visit Provider Nurse Practitioner Family
DX: R05.1 Acute cough (principal)
CPT/HCPCS: 0241U

== ENCOUNTER → 2024-05-02 09:28 | Outpatient (CLI) | payer MEDICARE, OTHER, SELFPAY ==
[2024-05-02 11:10] LABS: Prostate Specific Antigen 0.276 ng/mL (0.10-4.00)
== END ==
PROVIDERS: PCP Internal Medicine; Referring Provider Urology; Visit Provider Urology
DX: N40.1 Benign prostatic hyperplasia with lower urinary tract symptoms (principal); N13.8 Other obstructive and reflux uropathy; C61 Malignant neoplasm of prostate
CPT/HCPCS: 36415; 84153

== ENCOUNTER → 2024-10-25 08:08 | Outpatient (CLI) | payer MEDICARE, OTHER, SELFPAY ==
[2024-10-25 10:07] LABS: Prostate Specific Antigen 0.131 ng/mL (0.10-4.00)
== END ==
PROVIDERS: PCP Internal Medicine; Referring Provider Urology; Visit Provider Urology
DX: R97.20 Elevated prostate specific antigen [PSA] (principal)
CPT/HCPCS: 36415; 84153

== ENCOUNTER → 2025-05-02 14:59 | Outpatient (CLI) | payer MEDICARE, OTHER, SELFPAY ==
[2025-05-02 17:57] LABS: Prostate Specific Antigen 0.111 ng/mL (0.10-4.00)
== END ==
PROVIDERS: PCP Internal Medicine; Referring Provider Urology; Visit Provider Urology
DX: C61 Malignant neoplasm of prostate (principal); N40.1 Benign prostatic hyperplasia with lower urinary tract symptoms; N13.8 Other obstructive and reflux uropathy
CPT/HCPCS: 36415; 84153